=== PATIENT | male | born 1970 | race Two or more races ===

== ENCOUNTER 2020-05-17 13:25 | Inpatient (IN) | payer MEDICAID ==
[~2020-05-17] VITALS: Ht 190.5 cm; Wt 99.8 kg
--- NOTE | 2020-05-17 13:25 | NUR ---
CAME IN FOR C/O WORSENING SOB, COUGH, FATIGUE, TESTED + COVID 05/10/2020, "I WAS EXPOSED TO MY WHOSE POSITIVE COVID". TO ER BED 8, PLACED ON ISOLATION, PROVIDED W SURGICAL MASK, HOOKED TO EXPERIMENTAL PREFLIGHT MECHANIC, BP CUFF AND POX. CHANGED TO HOSP GOWN, WARM BLANKET PROVIDED, PATIENT AAO x 4, TACHYPNEIC AND TACHYCARDIC. AWAITING MD GUEVARA.
--- NOTE | 2020-05-17 13:51 | NUR ---
DR GARCIA AT BEDSIDE FOR EVAL
[2020-05-17] MEDS ORDERED: CEFTRIAXONE 1 G in IV D5W 50 ML IV ONE (15:00)
[2020-05-17] MEDS ORDERED: DEXAMETHASONE SOD PHOSPHATE 4 MG/ML VIAL IV ONE (15:00)
[2020-05-17] MEDS ORDERED: AZITHROMYCIN 500 MG in IV D5W 250 ML IV ONE (15:00)
[2020-05-17] MEDS ORDERED: DEXAMETHASONE SOD PHOSPHATE 4 MG/ML VIAL ONE (15:43)
[2020-05-17] MEDS ORDERED: CEFTRIAXONE 1GM BAG (ER ONLY) 50 ML IV ONE (15:43)
[2020-05-17 15:53] LABS: BASOPHILS % (AUTO) 0.5 % (0.0-2.0); EOSINOPHILS % (AUTO) 0.2 % (0.0-6.0); HEMATOCRIT 42 % (39-51); HEMOGLOBIN 14.1 g/dL (13.5-17.5); LYMPHOCYTES # (AUTO) 1.4 /CMM (0.8-4.8); LYMPHOCYTES % (AUTO) 16.3 % (20.0-44.0); MEAN CORPUSCULAR HGB CONC 33 g/dl (31.0-36.0); MEAN CORPUSCULAR VOLUME 88 fL (80-96); MONOCYTES # (AUTO) 0.5 /CMM (0.1-1.30); NEUTROPHILS # (AUTO) 6.5 /CMM (1.8-8.9); PLATELET COUNT (AUTO) 474 /CMM (150-450); RED BLOOD CELL COUNT(AUTO) 4.84 MIL/uL (4.5-6.0); WHITE BLOOD COUNT (AUTO) 8.5 K/uL (4.3-11.0)
--- NOTE | 2020-05-17 16:40 | NUR ---
LACTIC ACID 2.2
[2020-05-17 16:41] LABS: D-DIMER 1.21 mg/L(FEU (0.17-0.50)
[2020-05-17 16:53] LABS: CALCIUM, SERUM 8.9 mg/dL (8.5-10.1); CARBON DIOXIDE 29 mmol/L (21-32); CHLORIDE 99 mmol/L (98-107); CREATININE 1.2 mg/dL (0.6-1.3); GLUCOSE 349 mg/dL (74-106); POTASSIUM 4.2 mmol/L (3.5-5.1); SODIUM SERUM 135 mmol/L (136-145); UREA NITROGEN, BLOOD 12 mg/dL (7-18)
[2020-05-17] MEDS ORDERED: ZOLPIDEM TARTRATE 5 MG TABLET PO PRN (17:00)
[2020-05-17] MEDS ORDERED: ACETAMINOPHEN 325 MG TABLET PO PRN (17:00)
[2020-05-17] MEDS ORDERED: MAG HYDROX/AL HYDROX/SIMETH 30 ML UDC PO PRN (17:00)
[2020-05-17] MEDS ORDERED: MAGNESIUM HYDROXIDE 30 ML UDC PO PRN (17:00)
[2020-05-17] MEDS ORDERED: HYDROCODONE/APAP 5/325MG TABLET PO PRN (17:00)
[2020-05-17] MEDS ORDERED: ONDANSETRON HCL/PF 4 MG/2 ML VIAL IVP PRN (17:00)
[2020-05-17] MEDS ORDERED: Z GUARD REMEDY 2 OZ OINT TP PRN (17:00)
[2020-05-17 17:05] LABS: ALANINE AMINOTRANSFERASE 34 U/L (12-78); ALKALINE PHOSPHATASE 154 U/L (46-116); ASPARTATE AMINOTRANSFERASE 35 U/L (15-37); B-TYPE NATRIURETIC PEPTIDE 301 PG/ML (0-125); BILIRUBIN,TOTAL 0.5 mg/dL (0.2-1.0); TOTAL PROTEIN, SERUM 7.8 g/dL (6.4-8.2)
[2020-05-17 17:31] LABS: CREATINE KINASE, TOTAL 281 U/L (39-308); FERRITIN 1438 ng/mL (8-388)
[2020-05-17 17:43] LABS: C-REACTIVE PROTEIN 67.3 mg/dL (0.0-0.9)
--- NOTE | 2020-05-17 17:46 | NUR ---
PATIENT IN BED, ASLEEP, EASILY AROUSABLE BY VOICE. HOOKED TO MONITOR. ON 4LPM VIA NC. O2 SAT AT 93%. WILL CONTINUE TO MONITOR
[2020-05-17 18:54] LABS: BILIRUBIN,DIRECT 0.2 mg/dL (0.0-0.2)
--- NOTE | 2020-05-17 19:15 | NUR ---
ENDORSEMENT GIVEN TO GIULIA IBRAHIM FOR GABINO
[2020-05-18 04:10] LABS: BASOPHILS % (AUTO) 0.2 % (0.0-2.0); HEMATOCRIT 40 % (39-51); HEMOGLOBIN 13.1 g/dL (13.5-17.5); LYMPHOCYTES # (AUTO) 0.8 /CMM (0.8-4.8); MEAN CORPUSCULAR HGB CONC 33 g/dl (31.0-36.0); MEAN CORPUSCULAR VOLUME 89 fL (80-96); MONOCYTES # (AUTO) 0.4 /CMM (0.1-1.30); MONOCYTES % (AUTO) 5.7 % (2.0-12.0); NEUTROPHILS # (AUTO) 6.3 /CMM (1.8-8.9); NEUTROPHILS % (AUTO) 83.1 % (43.0-81.0); PLATELET COUNT (AUTO) 465 /CMM (150-450); RED BLOOD CELL COUNT(AUTO) 4.48 MIL/uL (4.5-6.0); WHITE BLOOD COUNT (AUTO) 7.6 K/uL (4.3-11.0)
[2020-05-18 04:25] LABS: CALCIUM, SERUM 8.5 mg/dL (8.5-10.1); MAGNESIUM 2.3 mg/dL (1.8-2.4); PHOSPHORUS 4.1 mg/dL (2.5-4.9); POTASSIUM 4.3 mmol/L (3.5-5.1)
--- NOTE | 2020-05-18 07:35 | NUR ---
REPORT GIVEN TO RAIMUNDO IBRAHIM FOR GABINO.
[2020-05-18] MEDS ORDERED: DEXAMETHASONE SOD PHOSPHATE 10 MG/ML VIAL ONE (09:17)
[2020-05-18] MEDS: DEXAMETHASONE SOD PHOSPHATE 10 MG/ML VIAL IV SCH (09:33)
--- NOTE | 2020-05-18 09:33 | NUR ---
PATIENT A/OX4, BREATHING EVEN AND UNLABORED, NOS OB NOTED. INITIALLY ON 4LPM VIA NC, TITRATED DOWN TO 3LPM VIA NC WITH SPO2 OF 93%, NEEDS ATTENDED. KEPT COMFORTABLE. VITALS STABLE.
[2020-05-18] MEDS ORDERED: ENOXAPARIN SODIUM 40 MG/0.4 ML DISP.SYRIN SQ ONE (11:39)
[2020-05-18] MEDS: ENOXAPARIN SODIUM 40 MG/0.4 ML DISP.SYRIN SQ SCH (11:52)
[2020-05-18] MEDS ORDERED: REMDESIVIR (CHARGED) 200 MG, *LOADING DOSE 1 EA in IV NS 0.9% 210 ML IV ONE (14:00)
--- NOTE | 2020-05-18 20:26 | NUR ---
PATIENT IS AAOX4. NO SOB .BREATHING EVENLY AND UNLABORED ON 4L VIA NASAL CANNULA. PATIENT IS WATCHING TELEVISION. PATIENT STATES THAT HE IS ABLE TO HAVE A BOWEL MOVEMENT WITHOUT ASSISTANCE. WILL CONTINUE TO SUPERVISE PATIENT.
--- NOTE | 2020-05-18 21:10 | NUR ---
PATIENT URINATED, AND HAD A BOWEL MOVEMENT, URINE OF 650ML
--- NOTE | 2020-05-18 22:58 | NUR ---
ARNAUD BARLOW [facility] NOTIFIED OF PATIENT'S BLOOD SUGAR OF 405.
[2020-05-18] MEDS ORDERED: DEXTROSE 50%-WATER 50 ML DISP.SYRIN IV PRN (23:30)
[2020-05-18] MEDS: BLOOD SUGAR DIAGNOSTIC 1 EACH STRIP VI SCH (23:30)
[2020-05-19] MEDS: *INSULIN REGULAR(HUMULIN R)HUM 100 UNIT/ML VIAL SQ PRN (00:19)
[2020-05-19] MEDS ORDERED: INSULIN REGULAR, HUMAN 100 UNIT/ML 10 ML VIAL ONE ×2 (00:28→12:25)
[2020-05-19 03:55] LABS: BASOPHILS % (AUTO) 0.3 % (0.0-2.0); HEMATOCRIT 42 % (39-51); HEMOGLOBIN 14.1 g/dL (13.5-17.5); LYMPHOCYTES # (AUTO) 0.7 /CMM (0.8-4.8); LYMPHOCYTES % (AUTO) 7.6 % (20.0-44.0); MEAN CORPUSCULAR HGB CONC 34 g/dl (31.0-36.0); MEAN CORPUSCULAR VOLUME 86 fL (80-96); MONOCYTES # (AUTO) 0.6 /CMM (0.1-1.30); MONOCYTES % (AUTO) 5.9 % (2.0-12.0); NEUTROPHILS # (AUTO) 8.3 /CMM (1.8-8.9); NEUTROPHILS % (AUTO) 86.2 % (43.0-81.0); PLATELET COUNT (AUTO) 593 /CMM (150-450); RED BLOOD CELL COUNT(AUTO) 4.84 MIL/uL (4.5-6.0); WHITE BLOOD COUNT (AUTO) 9.6 K/uL (4.3-11.0)
[2020-05-19 04:10] LABS: CALCIUM, SERUM 8.9 mg/dL (8.5-10.1); POTASSIUM 4.2 mmol/L (3.5-5.1)
[2020-05-19] MEDS: BLOOD SUGAR DIAGNOSTIC 1 EACH STRIP VI SCH ×4 (07:36→23:43)
[2020-05-19] MEDS: INSULIN REGULAR, HUMAN 100 UNIT/ML 3 ML VIAL SQ PRN ×3 (07:39→18:31)
--- NOTE | 2020-05-19 07:49 | NUR ---
REPORT GIVEN TO ZIGGY IBRAHIM FOR GABINO.
[2020-05-19] MEDS ORDERED: DEXAMETHASONE SOD PHOSPHATE 4 MG/ML VIAL ONE (09:04)
[2020-05-19] MEDS ORDERED: ENOXAPARIN SODIUM 40 MG/0.4 ML DISP.SYRIN SQ ONE (09:04)
[2020-05-19] MEDS: DEXAMETHASONE SOD PHOSPHATE 10 MG/ML VIAL IV SCH (09:06)
[2020-05-19] MEDS: ENOXAPARIN SODIUM 40 MG/0.4 ML DISP.SYRIN SQ SCH (09:07)
--- NOTE | 2020-05-19 09:24 | NUR ---
pt had breakfast meds given
[2020-05-19 13:24] LABS: ALBUMIN 1.9 g/dL (3.4-5.0); BILIRUBIN,DIRECT 0.1 mg/dL (0.0-0.2); BILIRUBIN,TOTAL 0.4 mg/dL (0.2-1.0); TOTAL PROTEIN, SERUM 7.3 g/dL (6.4-8.2)
--- NOTE | 2020-05-19 13:30 | NUR ---
PLASMA INFUSION STARTED . VSS LUNCH GIVEN
--- NOTE | 2020-05-19 14:30 | NUR ---
PT INFUSION COMPETED NO REACTION TOLERATED WELL
[2020-05-19] MEDS: REMDESIVIR (CHARGED) 100 MG in IV NS 0.9% 230 ML IV SCH (15:00)
--- NOTE | 2020-05-19 16:14 | NUR ---
diaper changed cleaned pt fell back asleep cont to monitor
--- NOTE | 2020-05-19 19:55 | NUR ---
pt in bed 11ox4. not in resp distress. on o2 via nc @ 2lpm
--- NOTE | 2020-05-19 21:47 | NUR ---
REC'D COVID POSITIVE RESULTS. AWARE
--- NOTE | 2020-05-20 03:41 | NUR ---
PT IN BED SLEEPING. NAD NOTED. BREATHING EVEN AND UNLABORED. ON NC @ 2LPM
[2020-05-20 06:09] LABS: BASOPHILS % (AUTO) 0.3 % (0.0-2.0); HEMATOCRIT 41 % (39-51); HEMOGLOBIN 13.8 g/dL (13.5-17.5); LYMPHOCYTES # (AUTO) 0.9 /CMM (0.8-4.8); LYMPHOCYTES % (AUTO) 8.5 % (20.0-44.0); MEAN CORPUSCULAR HGB CONC 34 g/dl (31.0-36.0); MEAN CORPUSCULAR VOLUME 86 fL (80-96); MONOCYTES # (AUTO) 0.6 /CMM (0.1-1.30); MONOCYTES % (AUTO) 5.7 % (2.0-12.0); NEUTROPHILS # (AUTO) 9.6 /CMM (1.8-8.9); NEUTROPHILS % (AUTO) 85.5 % (43.0-81.0); PLATELET COUNT (AUTO) 628 /CMM (150-450); WHITE BLOOD COUNT (AUTO) 11.2 K/uL (4.3-11.0)
[2020-05-20 06:11] LABS: CALCIUM, SERUM 8.9 mg/dL (8.5-10.1); CREATININE 0.8 mg/dL (0.6-1.3); POTASSIUM 4.2 mmol/L (3.5-5.1)
--- NOTE | 2020-05-20 07:31 | NUR ---
REPORT GIVEN TO MANDIE IBRAHIM FOR GABINO.
[2020-05-20] MEDS: BLOOD SUGAR DIAGNOSTIC 1 EACH STRIP VI SCH ×4 (07:42→22:05)
[2020-05-20] MEDS: *INSULIN REGULAR(HUMULIN R)HUM 100 UNIT/ML VIAL SQ PRN ×2 (07:45→22:17)
[2020-05-20] MEDS: INSULIN REGULAR, HUMAN 100 UNIT/ML 3 ML VIAL SQ PRN ×3 (07:46→17:51)
--- NOTE | 2020-05-20 07:59 | NUR ---
PT STATES HE FEELS MUCH BETTER, MUCH STRONGER. DESATS TO 88% ON ROOM AIR BUT NO RESPIRATORY DISTRESS. COMFORTABLE ON 4L VIA NC. SITTING ON EDGE OF BED EATING BREAKFAST.
[2020-05-20 08:24] LABS: BAND % (MANUAL) 5 % (0.0-5.0); LYMPHOCYTES % (MANUAL) 7 % (16-48); MONOCYTES % (MANUAL) 5 % (0-11.0); NEUTROPHILS % (MANUAL) 83 (42-76)
[2020-05-20] MEDS ORDERED: DEXAMETHASONE SOD PHOSPHATE 10 MG/ML VIAL ONE (09:24)
[2020-05-20] MEDS ORDERED: ENOXAPARIN SODIUM 40 MG/0.4 ML DISP.SYRIN SQ ONE (09:25)
[2020-05-20] MEDS: DEXAMETHASONE SOD PHOSPHATE 10 MG/ML VIAL IV SCH (09:25)
[2020-05-20] MEDS: ENOXAPARIN SODIUM 40 MG/0.4 ML DISP.SYRIN SQ SCH (09:26)
--- NOTE | 2020-05-20 14:09 | NUR ---
PT ATE 100% OF LUNCH. EDUCATED ON MANAGEMENT OF DIABETES FOR AFTER DISCHARGE, DIETARY MODIFICATIONS, INCREASED EXERCISE, SEE A FACILITIES SPECIALIST. NAD NOTED.
[2020-05-20] MEDS: REMDESIVIR (CHARGED) 100 MG in IV NS 0.9% 230 ML IV SCH (14:51)
[2020-05-20] MEDS ORDERED: INSULIN REGULAR, HUMAN 100 UNIT/ML 10 ML VIAL ONE (22:06)
--- NOTE | 2020-05-20 22:17 | NUR ---
patient on 4l of nasal cannula, noted to be 100%, titrated oxygen to 3Liters, will continue to monitor patient closely.
--- NOTE | 2020-05-21 00:11 | NUR ---
PATIENT IS SLEEPING. EASILY AROUSABLE. BREATHING EVENLY AND UNLABORED ON 97% ON 3L OF NASAL CANNULA. CONNECTED TO THE MONITOR. CALL LIGHT IS WITHIN REACH. BED AT THE LOWEST POSITION URINAL AT BEDSIDE.
[2020-05-21] MEDS: LISINOPRIL (5MG) 5 MG TABLET PO SCH ×2 (00:30→09:02)
[2020-05-21] MEDS ORDERED: hydrALAZINE HCL 10 MG TABLET PO PRN (00:30)
[2020-05-21 05:43] LABS: ABG BASE EXCESS -2.9 mmol/L; ABG OXYGEN SATURATION 91.4 % (92.0-98.5); ABG PCO2 30.7 mmHg (35.0-45.0); ABG PH 7.435 (7.350-7.450); AaDO2 130.2 mmHg; COHb 0.2 % (0.5-1.5); MetHb 0.3 % (0.0-1.5); O2Hb 90.9 % (94.0-97.0); SITE, ABG Left Radial; VENT MODE, BG 3LNC
[2020-05-21 06:23] LABS: BASOPHILS % (AUTO) 0.3 % (0.0-2.0); EOSINOPHILS % (AUTO) 0.1 % (0.0-6.0); HEMATOCRIT 42 % (39-51); HEMOGLOBIN 14.3 g/dL (13.5-17.5); LYMPHOCYTES # (AUTO) 1.7 /CMM (0.8-4.8); LYMPHOCYTES % (AUTO) 14.9 % (20.0-44.0); MEAN CORPUSCULAR HGB CONC 34 g/dl (31.0-36.0); MEAN CORPUSCULAR VOLUME 85 fL (80-96); MONOCYTES # (AUTO) 0.7 /CMM (0.1-1.30); MONOCYTES % (AUTO) 5.9 % (2.0-12.0); NEUTROPHILS # (AUTO) 8.8 /CMM (1.8-8.9); NEUTROPHILS % (AUTO) 78.8 % (43.0-81.0); PLATELET COUNT (AUTO) 697 /CMM (150-450); RED BLOOD CELL COUNT(AUTO) 4.88 MIL/uL (4.5-6.0); WHITE BLOOD COUNT (AUTO) 11.2 K/uL (4.3-11.0)
[2020-05-21 06:27] LABS: BILIRUBIN,TOTAL 0.3 mg/dL (0.2-1.0); CALCIUM, SERUM 8.7 mg/dL (8.5-10.1); CREATININE 0.8 mg/dL (0.6-1.3); TOTAL PROTEIN, SERUM 6.7 g/dL (6.4-8.2)
--- NOTE | 2020-05-21 07:33 | NUR ---
REPORT GIVEN TO ZIGGY IBRAHIM FOR GABINO.
[2020-05-21] MEDS ORDERED: DEXAMETHASONE SOD PHOSPHATE 4 MG/ML VIAL ONE (08:33)
[2020-05-21] MEDS ORDERED: ENOXAPARIN SODIUM 40 MG/0.4 ML DISP.SYRIN SQ ONE ×3 (08:36→19:56)
--- NOTE | 2020-05-21 08:40 | NUR ---
PT SENT TO CT
[2020-05-21] MEDS: BLOOD SUGAR DIAGNOSTIC 1 EACH STRIP VI SCH ×4 (08:50→21:43)
[2020-05-21] MEDS: DEXAMETHASONE SOD PHOSPHATE 10 MG/ML VIAL IV SCH (09:01)
[2020-05-21] MEDS: ENOXAPARIN SODIUM 40 MG/0.4 ML DISP.SYRIN SQ SCH ×3 (09:04→19:56)
[2020-05-21] MEDS: *INSULIN REGULAR(HUMULIN R)HUM 100 UNIT/ML VIAL SQ PRN ×2 (12:23→23:07)
[2020-05-21] MEDS: INSULIN REGULAR, HUMAN 100 UNIT/ML 3 ML VIAL SQ PRN ×2 (12:25→17:36)
--- NOTE | 2020-05-21 13:18 | NUR ---
PT EATTING LUNCH STATAED FEELING BETTER
[2020-05-21] MEDS: REMDESIVIR (CHARGED) 100 MG in IV NS 0.9% 230 ML IV SCH (14:39)
--- NOTE | 2020-05-21 15:28 | NUR ---
IV RESTARTED RT AC 20G
--- NOTE | 2020-05-21 20:06 | NUR ---
ASSUMED CARE. PT AAOX4, NO ACUTE DISTRESS NOTED, RESP EVEN AND UNLABORED. PT REMAINS ON O2@2L/NC, O2 SAT 95%. NO PAIN OR DISCOMFORT NOTED AT THIS TIME. PT REMAINS ON CARDIAC MONITORING, CONTINUOUS POX. CALL LIGHT WITHIN REACH. WILL CONTINUE TO MONITOR PT CLOSELY.
--- NOTE | 2020-05-21 20:56 | NUR ---
PT CALLED WANTS TO LEAVE AMA. ALL RISK EXPLAINED UP TO AND INCLUDING . PLACE PT ON RA TO EVALUATE O2 SAT ON RA. WILL CONTINUE TO MONITOR CLOSELY. CALL LIGHT WITHIN REACH. PT VERBALIZE UNDERSTAND OF ALL RISKS EXPLAINED.
--- NOTE | 2020-05-21 21:03 | NUR ---
NOTED PT O2 SAT DECREASED TO 87% ON RA. PLACE PT BACK ON O2@2L/NC. PT HAS NOW CHANGED HIS MIND ABOUT LEAVING AMA.
--- NOTE | 2020-05-21 21:05 | NUR ---
O2 SAT 95% ON 2L/NC. PT VERBALIZE FEELING BETTER AT THIS TIME. WILL CONTINUE TO MONITOR PT. CLOSELY.
--- NOTE | 2020-05-22 00:25 | NUR ---
PT ASLEEP, NO ACUTE DISTRESS NOTED, RESP EVEN AND UNLABORED. NO PAIN OR DISCOMFORT NOTED AT THIS TIME. CALL LIGHT WITHIN REACH. WILL CONTINUE TO MONITOR PT.
[2020-05-22 05:43] LABS: BASOPHILS # (AUTO) 0.1 /CMM (0.0-0.2); BASOPHILS % (AUTO) 0.5 % (0.0-2.0); EOSINOPHILS % (AUTO) 0.3 % (0.0-6.0); HEMATOCRIT 42 % (39-51); HEMOGLOBIN 14.3 g/dL (13.5-17.5); LYMPHOCYTES # (AUTO) 2.3 /CMM (0.8-4.8); LYMPHOCYTES % (AUTO) 20.8 % (20.0-44.0); MEAN CORPUSCULAR HGB CONC 34 g/dl (31.0-36.0); MEAN CORPUSCULAR VOLUME 86 fL (80-96); MONOCYTES # (AUTO) 0.5 /CMM (0.1-1.30); NEUTROPHILS # (AUTO) 8.1 /CMM (1.8-8.9); NEUTROPHILS % (AUTO) 73.4 % (43.0-81.0); PLATELET COUNT (AUTO) 695 /CMM (150-450); RED BLOOD CELL COUNT(AUTO) 4.88 MIL/uL (4.5-6.0)
[2020-05-22 05:56] LABS: CALCIUM, SERUM 8.4 mg/dL (8.5-10.1); CREATININE 0.8 mg/dL (0.6-1.3); POTASSIUM 3.6 mmol/L (3.5-5.1)
--- NOTE | 2020-05-22 08:02 | NUR ---
PATIENT SERVED BREAKFAST. TOLERATING PO WELL
[2020-05-22] MEDS: BLOOD SUGAR DIAGNOSTIC 1 EACH STRIP VI SCH ×4 (09:27→20:36)
[2020-05-22] MEDS: ENOXAPARIN SODIUM 40 MG/0.4 ML DISP.SYRIN SQ SCH ×2 (09:30→17:41)
[2020-05-22] MEDS: LISINOPRIL (5MG) 5 MG TABLET PO SCH (09:32)
[2020-05-22] MEDS: DEXAMETHASONE SOD PHOSPHATE 10 MG/ML VIAL IV SCH (09:32)
--- NOTE | 2020-05-22 10:12 | NUR ---
RECEIVED ORDER FROM DR HORVATH TO REMOVE OXYGEN AND SEE HOW PATIENT'S O2 SAT WILL BE. CARRIED OUT. WILL FOLLOW UP Elsie HORVATH OF RESULTS.
[2020-05-22] MEDS: INSULIN REGULAR, HUMAN 100 UNIT/ML 3 ML VIAL SQ PRN ×2 (11:45→17:44)
--- NOTE | 2020-05-22 12:22 | NUR ---
PATIENT SERVED LUNCH. TOLERATING PO WELL . ATE 80% OF FOOD.
--- NOTE | 2020-05-22 13:12 | NUR ---
MADE DR HORVATH AWARE OF PATIENT'S O2 SAT AT . AWAITING REPLY
--- NOTE | 2020-05-22 13:16 | NUR ---
RECEIVED REPLY FROM DR APARICIO ABOUT O2 SAT W/O O2 AND AT BED REST. SAYS IF PATIENT STAYS 90% O2 SAT AND ABOVE AND TUBE DRAWER CLEARS TO THEN MAYBE PATIENT IS OK TO BE DISCHARGED. USUALLY NEEDS TO WAIT FOR 24 HOURS OFF OXYGEN BEFORE SENDING HOME. MADE PATIENT AWARE.
[2020-05-22 13:20] LABS: ALBUMIN 2.1 g/dL (3.4-5.0); BILIRUBIN,DIRECT 0.1 mg/dL (0.0-0.2); BILIRUBIN,TOTAL 0.4 mg/dL (0.2-1.0); TOTAL PROTEIN, SERUM 6.7 g/dL (6.4-8.2)
[2020-05-22] MEDS: REMDESIVIR (CHARGED) 100 MG in IV NS 0.9% 230 ML IV SCH (14:40)
--- NOTE | 2020-05-22 17:57 | NUR ---
PATIENT TOLERATED PO DURING DINNER, ATE 90%.
--- NOTE | 2020-05-22 19:21 | NUR ---
REPORT GIVEN TO GIULIA IBRAHIM FOR GABINO
--- NOTE | 2020-05-22 20:09 | NUR ---
PT WANT TO SIGN OUT AMA AND REFUSES TO WAIT FOR SUPPLEMENTAL O2 TO BE ARRANGED BY [employer]. PT WANTS TO AMBULATE TO THE RESTROOM AND BACK TO CHECK HIS O2 SAT AND HE WILL DECIDE IF HE WANTS TO SIGN OUT AMA. PT AAOX4 NO ACUTE DISTRESS NOTED, RESP EVEN AND UNLABORED.
--- NOTE | 2020-05-22 20:13 | NUR ---
PRETRIAL OF AMBULATION O2 SAT 98 ON RA. POST TRIAL OF AMBULATION 93-94%. PT STILL WANT TO SIGN OUT AMA. ALL RISKS EXPLAINED TO PT UP TO AND INCLUDING . PT VERBALIZE UNDERSTANDING.
--- NOTE | 2020-05-22 20:15 | NUR ---
Patient does not wish to proceed with medical care recommended by (ARNAUD BARLOW DNP). Patient given information related to possible complications, up to and including , which could occur as a result of leaving the hospital at this time. Patient verbalizes understanding of risks involved due to leaving against medical advice. Patient has signed AMA form.
[2020-05-22] MEDS: *INSULIN REGULAR(HUMULIN R)HUM 100 UNIT/ML VIAL SQ PRN (20:34)
--- NOTE | 2020-05-22 20:43 | NUR ---
PT REQUESTING TO HAVE BS CHECKED BEFORE LEAVING. ACCUCHECK 410. PT GIVEN REGULAR INSULIN REQUESTED. PT LEFT AMA. PT AAOX4 NO ACUTE DISTRESS NOTED, RESP EVEN AND UNLABORED. PT S/O HERE TO TAKE PT HOME. SL REMOVED, PRESSURE APPLIED, 4X4 APPLIED, NO ACUTE BLEEDING NOTED.
[2020-05-22 20:52] VITALS: BP 139/72
== END 2020-05-22 20:52 | disposition left against medical advice (07) | DRG 137 ==
LOC: EDBD 13:30 → ER 13:30 → TRANSITION 18:22 → EDBD 18:22
PROVIDERS: ADMIT Family Medicine; ATTEND Family Medicine
PROC: XW13325 Transfusion of Convalescent Plasma (Nonautologous) into Peripheral Vein, Percutaneous Approach, New Technology Group 5 (ICD-10-PCS; 2020-05-18)
PROC: XW033E5 Introduction of Remdesivir Anti-infective into Peripheral Vein, Percutaneous Approach, New Technology Group 5 (ICD-10-PCS; principal; 2020-05-19)
DX: U07.1 COVID-19 (principal); J12.89 Other viral pneumonia; J96.01 Acute respiratory failure with hypoxia; E43 Unspecified severe protein-calorie malnutrition; J90 Pleural effusion, not elsewhere classified
CPT/HCPCS: 36415; 36600; 71045-TC; 80048-TC; 80053-TC; 80061-TC; 80076-TC; 82248-TC; 82550-TC; 82728-TC; 82962-TC; 83605-TC; 83615-TC; 83735-TC; 83880; 84100-TC; 84484-TC; 85025-TC; 85378-TC; 85610-TC; 85730-TC; 86140-TC; 86850-TC; 87040-TC; 87081-TC; 93307-TC; A4216; G0378; J0456; J0696; J1100; J1650; J1815; J7030; J7050; J7060; P9017-BL; U0003

== ENCOUNTER 2020-05-23 12:18 | Emergency (ER) | payer MEDICAID ==
[~2020-05-23] VITALS: Ht 182.9 cm; Wt 124.7 kg
[2020-05-23 13:06] LABS: BASOPHILS # (AUTO) 0.1 /CMM (0.0-0.2); BASOPHILS % (AUTO) 0.5 % (0.0-2.0); EOSINOPHILS % (AUTO) 0.4 % (0.0-6.0); HEMATOCRIT 42 % (39-51); HEMOGLOBIN 14.2 g/dL (13.5-17.5); LYMPHOCYTES # (AUTO) 2.2 /CMM (0.8-4.8); LYMPHOCYTES % (AUTO) 16.5 % (20.0-44.0); MEAN CORPUSCULAR HGB CONC 34 g/dl (31.0-36.0); MEAN CORPUSCULAR VOLUME 87 fL (80-96); MONOCYTES # (AUTO) 0.6 /CMM (0.1-1.30); MONOCYTES % (AUTO) 4.9 % (2.0-12.0); NEUTROPHILS # (AUTO) 10.2 /CMM (1.8-8.9); NEUTROPHILS % (AUTO) 77.7 % (43.0-81.0); PLATELET COUNT (AUTO) 761 /CMM (150-450); RED BLOOD CELL COUNT(AUTO) 4.86 MIL/uL (4.5-6.0); WHITE BLOOD COUNT (AUTO) 13.2 K/uL (4.3-11.0)
--- NOTE | 2020-05-23 13:11 | NUR ---
bibs from home to er bed 22. aaox4. not in resp distress, breathing even and unlabored. ambulatory. came in for concern of his elevated bs with has found when he was here being admitted for covid. pt does not have any discharge medication to manage his elevated bs. md was at the bedside for eval. orders received noted and carried out.
[2020-05-23 13:24] LABS: ALANINE AMINOTRANSFERASE 45 U/L (12-78); ALBUMIN 2.2 g/dL (3.4-5.0); ALKALINE PHOSPHATASE 94 U/L (46-116); ASPARTATE AMINOTRANSFERASE 24 U/L (15-37); BILIRUBIN,TOTAL 0.5 mg/dL (0.2-1.0); CALCIUM, SERUM 8.5 mg/dL (8.5-10.1); CARBON DIOXIDE 27 mmol/L (21-32); CHLORIDE 101 mmol/L (98-107); CREATININE 1.2 mg/dL (0.6-1.3); POTASSIUM 3.6 mmol/L (3.5-5.1); SODIUM SERUM 135 mmol/L (136-145); UREA NITROGEN, BLOOD 24 mg/dL (7-18)
[2020-05-23 13:25] LABS: TOTAL PROTEIN, SERUM 6.8 g/dL (6.4-8.2)
[2020-05-23 13:27] LABS: GLUCOSE 477 mg/dL (74-106)
[2020-05-23 13:28] LABS: B-TYPE NATRIURETIC PEPTIDE 214 PG/ML (0-125)
[2020-05-23 14:11] LABS: BILIRUBIN,URINE Negative (NEGATIVE); COLOR,URINE YELLOW (YELLOW); LEUKOCYTE ESTERASE ,URINE Negative (NEGATIVE); NITRITE, URINE Negative (NEGATIVE); PROTEIN,URINE 30 mg/dl (NEGATIVE); UGLUCOSE >=1000 mg/dL (NEGATIVE); UROBILINOGEN,URINE 0.2 EU/dL (0.2)
[2020-05-23 14:12] LABS: BACTERIA,URINE None seen /HPF (None Seen); SQUAMOUS EPITHELIAL CELL,UR None Seen /HPF (None Seen); WBC,URINE 0-2 /HPF (0-3)
--- NOTE | 2020-05-23 14:44 | NUR ---
Patient discharged to home in stable condition. Written and verbal after care instructions given. Patient verbalizes understanding of instruction. Pt ambulatory with a steady gait
[2020-05-23 14:54] VITALS: BP 135/80
[2020-05-23 14:56] LABS: CREATINE KINASE, TOTAL 124 U/L (39-308)
[2020-05-23 15:25] LABS: C-REACTIVE PROTEIN 5.4 mg/dL (0.0-0.9)
[2020-05-23 16:12] LABS: FERRITIN 1413 ng/mL (8-388)
[2020-05-23 16:38] LABS: D-DIMER 1.44 mg/L(FEU (0.17-0.50)
== END 2020-05-23 14:55 | disposition home or self-care (01) ==
LOC: ER 12:21
DX: U07.1 COVID-19 (principal); R73.9 Hyperglycemia, unspecified; I70.0 Atherosclerosis of aorta; R81 Glycosuria; J12.82 Pneumonia due to coronavirus disease 2019
CPT/HCPCS: 36415; 71045; 80053; 81001; 82550; 82728; 82962; 83605; 83615; 83880; 84145; 84484; 85025; 85378; 85385; 85730; 86140; 87426; 99284; C9803

== ENCOUNTER 2020-06-02 15:32 | Emergency (ER) | payer MEDICAID ==
[~2020-06-02] VITALS: Ht 177.8 cm; Wt 113.4 kg
--- NOTE | 2020-06-02 15:45 | NUR ---
bib self c/o headache/migraine states that he feels itmostly on the r eye. vs checked. awaiting md valencia
--- NOTE | 2020-06-02 16:09 | NUR ---
seen by agus boggs
[2020-06-02 16:53] LABS: BASOPHILS # (AUTO) 0.1 /CMM (0.0-0.2); BASOPHILS % (AUTO) 1.6 % (0.0-2.0); EOSINOPHILS % (AUTO) 0.4 % (0.0-6.0); HEMATOCRIT 41 % (39-51); HEMOGLOBIN 14.3 g/dL (13.5-17.5); LYMPHOCYTES % (AUTO) 24.8 % (20.0-44.0); MEAN CORPUSCULAR HGB CONC 35 g/dl (31.0-36.0); MEAN CORPUSCULAR VOLUME 87 fL (80-96); MONOCYTES # (AUTO) 0.5 /CMM (0.1-1.30); MONOCYTES % (AUTO) 6.4 % (2.0-12.0); NEUTROPHILS # (AUTO) 5.4 /CMM (1.8-8.9); NEUTROPHILS % (AUTO) 66.8 % (43.0-81.0); PLATELET COUNT (AUTO) 317 /CMM (150-450); RED BLOOD CELL COUNT(AUTO) 4.67 MIL/uL (4.5-6.0); WHITE BLOOD COUNT (AUTO) 8.1 K/uL (4.3-11.0)
[2020-06-02 17:06] LABS: ALBUMIN 2.8 g/dL (3.4-5.0); BILIRUBIN,TOTAL 0.4 mg/dL (0.2-1.0); CALCIUM, SERUM 8.7 mg/dL (8.5-10.1); POTASSIUM 4.1 mmol/L (3.5-5.1); TOTAL PROTEIN, SERUM 6.8 g/dL (6.4-8.2)
[2020-06-02 18:04] LABS: BILIRUBIN,DIRECT 0.1 mg/dL (0.0-0.2)
--- NOTE | 2020-06-02 18:15 | NUR ---
CALLED DR. ARMENTA LEFT MSG. [phone]
--- NOTE | 2020-06-02 18:26 | NUR ---
CALLED STEPH BOOTH TO CALL US BACK.
[2020-06-02 18:27] LABS: BAND % (MANUAL) 6 % (0.0-5.0); EOSINOPHILS % (MANUAL) 2 % (0-4); LYMPHOCYTES % (MANUAL) 27 % (16-48); MONOCYTES % (MANUAL) 5 % (0-11.0); NEUTROPHILS % (MANUAL) 60 (42-76)
[2020-06-02] MEDS ORDERED: CT SWABBABLE VALVE TRANS SET 1 EA INFUS.SET MC ONE (18:53)
[2020-06-02] MEDS ORDERED: IOHEXOL-350 100 ML VIAL IV ONE (18:53)
[2020-06-02] MEDS ORDERED: IV NS 0.9% 250 ML IV ONE (18:53)
--- NOTE | 2020-06-02 19:15 | NUR ---
REC'D REPORT FROM PATRICE HERNANDEZ FOR GABINO
--- NOTE | 2020-06-02 19:17 | NUR ---
out for cta of brain
--- NOTE | 2020-06-02 19:28 | NUR ---
PT RETURNED FROM CT
--- NOTE | 2020-06-02 20:37 | NUR ---
Patient discharged to home in stable condition. Written and verbal after care instructions given. Patient verbalizes understanding of instruction.Pt ambulatory with a steady gait. IV removed. Catheter intact and site benign. Pressure and 4x4 applied to site. No bleeding noted.
[2020-06-02 20:38] VITALS: BP 165/96
== END 2020-06-02 20:39 | disposition home or self-care (01) ==
LOC: ER 15:44
DX: R73.9 Hyperglycemia, unspecified (principal); R51.9 Headache, unspecified; H51.8 Other specified disorders of binocular movement
CPT/HCPCS: 36415; 70450; 70496; 70498; 80048; 80076; 85007; 85025; 85730; 99285; J7050; Q9967

== ENCOUNTER 2022-09-30 10:21 | Inpatient (IN) | payer MEDICAID ==
[~2022-09-30] VITALS: Ht 182.9 cm; Wt 137.0 kg
--- NOTE | 2022-09-30 10:31 | NUR ---
SHORT OF BREATH X 1 WEEK,SINUS CONGESTION AND COUGH, SATTING AT 95% ON ROOM AIR. AWAITING MD ORDERS.
[2022-09-30 11:43] LABS: CALCIUM, SERUM 8.9 mg/dL (8.5-10.1); CARBON DIOXIDE 26 mmol/L (21-32); CHLORIDE 103 mmol/L (98-107); CREATININE 0.8 mg/dL (0.6-1.3); GLUCOSE 281 mg/dL (74-106); POTASSIUM 4.1 mmol/L (3.5-5.1); SODIUM SERUM 138 mmol/L (136-145); UREA NITROGEN, BLOOD 18 mg/dL (7-18)
[2022-09-30 11:49] LABS: ALANINE AMINOTRANSFERASE 59 U/L (12-78); ALBUMIN 3.1 g/dL (3.4-5.0); ALKALINE PHOSPHATASE 119 U/L (46-116); ASPARTATE AMINOTRANSFERASE 20 U/L (15-37); BILIRUBIN,DIRECT 0.1 mg/dL (0.0-0.2); BILIRUBIN,TOTAL 0.7 mg/dL (0.2-1.0); TOTAL PROTEIN, SERUM 6.6 g/dL (6.4-8.2)
[2022-09-30 11:51] LABS: BASOPHILS % (AUTO) 0.4 % (0.0-2.0); EOSINOPHILS % (AUTO) 0.6 % (0.0-6.0); HEMATOCRIT 42 % (39-51); HEMOGLOBIN 14.2 g/dL (13.5-17.5); LYMPHOCYTES % (AUTO) 27.4 % (20.0-44.0); MEAN CORPUSCULAR HGB CONC 34 g/dl (31.0-36.0); MEAN CORPUSCULAR VOLUME 86 fL (80-96); MONOCYTES # (AUTO) 0.6 K/uL (0.1-1.30); MONOCYTES % (AUTO) 7.8 % (2.0-12.0); NEUTROPHILS # (AUTO) 4.8 K/uL (1.8-8.9); NEUTROPHILS % (AUTO) 63.8 % (43.0-81.0); PLATELET COUNT (AUTO) 264 K/uL (150-450); RED BLOOD CELL COUNT(AUTO) 4.92 MIL/uL (4.5-6.0); WHITE BLOOD COUNT (AUTO) 7.5 K/uL (4.3-11.0)
[2022-09-30] MEDS ORDERED: ACETAMINOPHEN 325 MG TABLET PO PRN (16:00)
[2022-09-30] MEDS ORDERED: MORPHINE SULFATE INJ 2 MG/ML DISP.SYRIN IV PRN (16:00)
[2022-09-30] MEDS ORDERED: AZITHROMYCIN 250 MG TABLET PO ONE (16:00)
[2022-09-30] MEDS ORDERED: HYDROCODONE/APAP 5/325MG TABLET PO PRN (16:00)
[2022-09-30] MEDS ORDERED: MAG HYDROX/AL HYDROX/SIMETH 30 ML UDC PO PRN (16:00)
[2022-09-30] MEDS ORDERED: TEMAZEPAM 15 MG CAPSULE PO PRN (16:00)
[2022-09-30] MEDS ORDERED: MAGNESIUM HYDROXIDE 30 ML UDC PO PRN (16:00)
[2022-09-30] MEDS ORDERED: Z GUARD REMEDY 4 OZ OINT TP PRN (16:00)
[2022-09-30] MEDS ORDERED: ONDANSETRON HCL/PF 4 MG/2 ML VIAL IVP PRN (16:00)
[2022-09-30] MEDS ORDERED: DEXTROSE 50%-WATER 50 ML DISP.SYRIN IV PRN (16:30)
--- NOTE | 2022-09-30 18:03 | NUR ---
REPORT GIVEN TO ALBERTO FOR GABINO
--- NOTE | 2022-09-30 18:58 | NUR ---
PT TRANSFERRED OT TELE FLOOR WITH ACLS PROTOCOLS IN PLACE
[2022-09-30] MEDS: BLOOD SUGAR DIAGNOSTIC 1 EACH STRIP IN SCH ×2 (19:20→21:27)
--- NOTE | 2022-09-30 19:20 | NUR ---
PRODUCTION SCHEDULER ADMITTING NOTE RECEIVED PATIENT FROM AM NURSE; PATIENT IN BED WITH AT BEDSIDE, A/O X 4, ABLE TO MAKE NEEDS KNOWN; STABLE ON ROOM AIR, BREATHING EVENLY AND NO S/S OF DISTRESS NOTED; WITH IV ACCESS AT RAC G#20 SALINE LOCK; SKIN ASSESSMENT WAS DONE AND NOTED DRY SCAB AT [place]IB[place] AND OLD SURGICAL SCAR, PHOTOGRAPHED AND INSERTED INTO CHART; VITAL SIGNS TAKEN AND RECORDED; ORIENTED TO STAFF AND ROOM; ENCOURAGED VERBALIZATION OF NEEDS; SAFETY MEASURES IMPLEMENTED, BED LOCKED IN LOWEST POSITION, SIDE RAILS UP X 2, CALL LIGHT AND TABLE WITHIN REACH; WILL CONTINUE TO MONITOR
--- NOTE | 2022-09-30 19:40 | NUR ---
SAMPLE FINISHER NOTE COMPLAINED OF CONGESTED NOSE AND HEADACHE, ADMINISTERED TYLENOL PRN ORDERED; PATIENT TOLERATED WELL; WAS SUPPOSE TO GIVE AZITHROMYCIN DUE AT 1600H BUT UNABLE TO PULL OUT FROM PYXIS, CHARGE NURSE MADE AWARE.
[2022-09-30 20:00] VITALS: BP 176/68
[2022-09-30] MEDS: INSULIN REGULAR, HUMAN 100 UNIT/ML 3 ML VIAL SQ PRN (21:29)
[2022-09-30] MEDS ORDERED: AZITHROMYCIN 250 MG TABLET ONE (22:38)
--- NOTE | 2022-09-30 22:45 | NUR ---
HATCHERY LABORER NOTE GAVE AZITHROMYCIN 500MG AT 2240H; UNABLE TO PULL OUT AZITHROMYCIN TABLET INITIALLY HENCE LATE ADMINISTRATION. CHARGE NURSE AWARE. PATIENT TOLERATED WELL; WILL CONTINUE TO MONITOR
[2022-09-30] MEDS ORDERED: METF-442 PO (23:52)
[2022-09-30] MEDS ORDERED: LISI10TA29 PO (23:52)
[2022-09-30] MEDS ORDERED: ATOR40TA PO (23:52)
[2022-09-30] MEDS ORDERED: OMEG-167 PO (23:52)
[2022-09-30] MEDS ORDERED: GABA300C PO (23:52)
[2022-09-30] MEDS ORDERED: GLIP10TA11 PO (23:52)
[2022-09-30] MEDS ORDERED: ASPI-1169 PO (23:52)
[2022-09-30] MEDS ORDERED: PIOG15TA8 PO (23:52)
[2022-09-30] MEDS ORDERED: LORA10TA7 PO (23:52)
[2022-10-01] VITALS: BP 156/100
[2022-10-01 04:00] VITALS: BP 156/94
[2022-10-01 06:25] LABS: BASOPHILS % (AUTO) 0.4 % (0.0-2.0); EOSINOPHILS % (AUTO) 0.7 % (0.0-6.0); HEMATOCRIT 43 % (39-51); HEMOGLOBIN 14.5 g/dL (13.5-17.5); LYMPHOCYTES # (AUTO) 2.1 K/uL (0.8-4.8); LYMPHOCYTES % (AUTO) 26.6 % (20.0-44.0); MEAN CORPUSCULAR HGB CONC 34 g/dl (31.0-36.0); MEAN CORPUSCULAR VOLUME 86 fL (80-96); MONOCYTES # (AUTO) 0.7 K/uL (0.1-1.30); MONOCYTES % (AUTO) 8.3 % (2.0-12.0); PLATELET COUNT (AUTO) 279 K/uL (150-450); RED BLOOD CELL COUNT(AUTO) 5.03 MIL/uL (4.5-6.0); WHITE BLOOD COUNT (AUTO) 7.8 K/uL (4.3-11.0)
[2022-10-01] MEDS: BLOOD SUGAR DIAGNOSTIC 1 EACH STRIP IN SCH ×4 (06:40→21:52)
[2022-10-01] MEDS: INSULIN REGULAR, HUMAN 100 UNIT/ML 3 ML VIAL SQ PRN ×4 (06:41→21:56)
[2022-10-01 06:43] LABS: CALCIUM, SERUM 8.9 mg/dL (8.5-10.1); CREATININE 0.8 mg/dL (0.6-1.3); MAGNESIUM 1.7 mg/dL (1.8-2.4); PHOSPHORUS 3.9 mg/dL (2.5-4.9); POTASSIUM 4.1 mmol/L (3.5-5.1)
[2022-10-01 06:53] LABS: THYROID STIMULATING HORMONE 1.447 uIU/mL (0.358-3.74)
[2022-10-01 07:00] VITALS: BP 150/90
--- NOTE | 2022-10-01 07:24 | NUR ---
ACCOUNTING SUPERVISOR CLOSING NOTE PATIENT IN BED, A/O X 4, ABLE TO MAKE NEEDS KNOWN; STABLE ON ROOM AIR, BREATHING EVENLY AND NO S/S OF DISTRESS NOTED; WITH IV ACCESS AT RAC G#20 SALINE LOCK, INTACT AND PATENT; HOOKED TO TELE MONITORING CURRENTLY READING SINUS RHYTHM 80-90S BPM; ADMINISTERED MEDICATIONS PRESCRIBED; PATIENT'S NEEDS ATTENDED; MONITORED PATIENT ACCORDINGLY; SAFETY MEASURES IMPLEMENTED, BED LOCKED IN LOWEST POSITION, SIDE RAILS UP X 2, CALL LIGHT AND TABLE WITHIN REACH; WILL ENDORSE TO AM NURSE FOR GABINO.
--- NOTE | 2022-10-01 07:58 | NUR ---
SLOTTER OPERATOR OPENING NOTE PATIENT IN BED, A/O X 4, ABLE TO MAKE NEEDS KNOWN; STABLE ON ROOM AIR, BREATHING EVENLY AND NO S/S OF DISTRESS NOTED; WITH IV ACCESS AT RAC G#20 SALINE LOCK, INTACT AND PATENT; HOOKED TO TELE MONITORING CURRENTLY READING SINUS RHYTHM HR 85 BPM; SAFETY MEASURES IMPLEMENTED, BED LOCKED IN LOWEST POSITION, SIDE RAILS UP X 2, CALL LIGHT AND TABLE WITHIN REACH; WILL CONTINUE TO MONITOR.
[2022-10-01] MEDS: PANTOPRAZOLE 40 MG TABLET.DR PO SCH (08:28)
[2022-10-01] MEDS ORDERED: AZITHROMYCIN 250 MG TABLET PO SCH (09:00)
[2022-10-01] MEDS ORDERED: ASPIRIN 81 MG TAB.CHEW PO SCH (09:00)
[2022-10-01] MEDS ORDERED: MAGNESIUM OXIDE 400 MG TABLET PO ONE (11:00)
[2022-10-01 12:00] VITALS: BP 159/103
[2022-10-01] MEDS: AZITHROMYCIN 250 MG TABLET PO SCH (13:00)
[2022-10-01] MEDS ORDERED: AZITHROMYCIN 250 MG TABLET PO ONE (13:30)
[2022-10-01] MEDS ORDERED: AZIT250T PO (15:21)
[2022-10-01] MEDS ORDERED: PIOG45TA5 PO (15:21)
[2022-10-01 16:00] VITALS: BP_SYST 147; BP_SYST 159; BP_DIAS 103; BP_DIAS 80
[2022-10-01] MEDS: LISINOPRIL (10MG) 10 MG TABLET PO SCH (16:30)
[2022-10-01] MEDS ORDERED: Medication Not On Formulary EA (Omega-3 Fatty Acids/Fish Oil (Fish Oil 1,000 Mg Softgel) PO SCH (17:00)
--- NOTE | 2022-10-01 18:37 | NUR ---
RN CLOSING NOTE PATIENT IN BED, A/O X 4, ABLE TO MAKE NEEDS KNOWN; STABLE ON ROOM AIR, BREATHING EVENLY AND NO S/S OF DISTRESS NOTED; WITH IV ACCESS AT RAC G#20 SALINE LOCK, INTACT AND PATENT; HOOKED TO TELE MONITORING CURRENTLY READING SINUS RHYTHM HR 85 BPM; ALL MEDS GIVEN, NO SIGNIFICANT CHANGES NOTED ALL THROUGHOUT THE SHIFT. SAFETY MEASURES IMPLEMENTED, BED LOCKED IN LOWEST POSITION, SIDE RAILS UP X 2, CALL LIGHT AND TABLE WITHIN REACH; WILL ENDORSED TO NEXT NURSE
--- NOTE | 2022-10-01 19:00 | NUR ---
RN OPENING NOTE RECEIVED PT AWAKE IN BED WITH ON BEDSIDE. PT IS A/O X 4, ABLE TO MAKE NEEDS KNOWN. PT IS IN RA TOLERATING WELL, BREATHING EVEN AND UNLABORED @ THIS TIME. PT IV PRESENT ON RIGHT AC #20TG SALINE LOCK, PATENT, INTACT AND FLUSHES WELL W/ NO S &SX OF INFILTRATION @ SITE NOTED. PT MARKETING SECRETARY IS IN PLACE W/ CURRENT READING OF SINUS RHYTHM, HR OF 96 BPM. SAFETY MEASURES IN IS PLACE. BED IN LOWEST AND LOCKED POSITION. SIDE RAILS UP X 2. BEDSIDE TABLE AND CALL LIGHT IS EASY REACH. BED ALARM IS ON. WILL CONTINUE TO MONITOR PT ACCORDINGLY.
[2022-10-01 20:00] VITALS: BP_SYST 0; BP_SYST 156; BP_DIAS 86
[2022-10-02] VITALS: BP 145/99
[2022-10-02 04:00] VITALS: BP 139/81
--- NOTE | 2022-10-02 04:49 | NUR ---
INSTRUCTED PT NOT TO DRINK COFFEE BEFORE THE CT ANGIO OF THE HEART. PT VERBALIZES UNDERSTANDING.
[2022-10-02] MEDS: INSULIN REGULAR, HUMAN 100 UNIT/ML 3 ML VIAL SQ PRN ×3 (06:32→17:26)
[2022-10-02] MEDS: BLOOD SUGAR DIAGNOSTIC 1 EACH STRIP IN SCH ×3 (06:33→16:53)
--- NOTE | 2022-10-02 06:54 | NUR ---
RN CLOSING NOTE PT AWAKE & RESTING COMFORTABLY IN BED. PT IS A/O X 4, RESPONSIVE AND FOLLOWS VERBAL COMMAND. PT IS IN RA W/ NO S & SX OF RESPIRATORY DISTRESS @ THIS TIME. PT IV PRESENT ON RIGHT AC #20TG SALINE LOCK, PATENT, INTACT AND FLUSHES WELL W/ NO S &SX OF INFILTRATION @ SITE NOTED. PT POLICE CAPTAIN SENIOR IS IN PLACE W/ CURRENT READING OF SINUS RHYTHM, HR 86 BPM. ADMINISTERED MEDICATIONS ACCORDINGLY PER MD'S ORDER. SAFETY MEASURES IN IS PLACE. BED IN LOWEST AND LOCKED POSITION. SIDE RAILS UP X 2. BEDSIDE TABLE AND CALL LIGHT IS EASY REACH. BED ALARM IS ON. WILL ENDORSE PT TO THE NEXT SHIFT FOR GABINO.
--- NOTE | 2022-10-02 08:07 | NUR ---
RN OPENING NOTE PT AWAKE & RESTING COMFORTABLY IN BED. PT IS A/O X 4, RESPONSIVE AND FOLLOWS VERBAL COMMAND. PT IS IN RA W/ NO S & SX OF RESPIRATORY DISTRESS @ THIS TIME. PT IV PRESENT ON RIGHT AC #20G SALINE LOCK, PATENT, INTACT AND FLUSHES WELL W/ NO S &SX OF INFILTRATION @ SITE NOTED. PT SUSTAINABILITY SPECIALIST IS IN PLACE W/ CURRENT READING OF SINUS RHYTHM, HR 89 BPM. SAFETY MEASURES IN IS PLACE. BED IN LOWEST AND LOCKED POSITION. SIDE RAILS UP X 2. BEDSIDE TABLE AND CALL LIGHT IS EASY REACH. BED ALARM IS ON. WILL CONTINUE TO MONITOR.
[2022-10-02] MEDS: PANTOPRAZOLE 40 MG TABLET.DR PO SCH (08:34)
[2022-10-02] MEDS ORDERED: PIOGLITAZONE HCL 15 MG TABLET PO SCH (09:00)
[2022-10-02] MEDS ORDERED: GABAPENTIN 300 MG CAPSULE PO SCH (09:00)
[2022-10-02] MEDS ORDERED: glipiZIDE 10 MG TABLET PO SCH (09:00)
[2022-10-02] MEDS ORDERED: ATORVASTATIN 40 MG TABLET PO SCH (09:00)
[2022-10-02] MEDS ORDERED: ASPIRIN 81 MG TAB.CHEW PO SCH (09:00)
[2022-10-02] MEDS ORDERED: AZITHROMYCIN 250 MG TABLET PO SCH (09:00)
[2022-10-02] MEDS: LISINOPRIL (10MG) 10 MG TABLET PO SCH ×2 (09:21→17:18)
[2022-10-02] MEDS: METOPROLOL TARTRATE INJ 5 MG/5 ML AMPUL IVP PRN ×8 (12:27→13:02)
[2022-10-02] MEDS: AZITHROMYCIN 250 MG TABLET PO SCH (12:28)
[2022-10-02] MEDS ORDERED: NITROGLYCERIN 0.4 MG/TAB BOTTLE ONE (12:37)
[2022-10-02] MEDS ORDERED: IOHEXOL-350 100 ML VIAL IV ONE (12:37)
[2022-10-02] MEDS ORDERED: METOPROLOL TARTRATE INJ 5 MG/5 ML AMPUL ONE ×2 (12:38→12:56)
[2022-10-02] MEDS ORDERED: IV NS 0.9% 250 ML IV ONE (12:38)
[2022-10-02] MEDS ORDERED: CT SWABBABLE VALVE TRANS SET 1 EA INFUS.SET MC ONE (12:38)
[2022-10-02] MEDS ORDERED: NITROGLYCERIN 0.4 MG/TAB BOTTLE SL ONE (13:00)
[2022-10-02 16:00] VITALS: BP 137/79
[2022-10-02 17:18] VITALS: BP 137/79
--- NOTE | 2022-10-02 17:54 | NUR ---
DISCHARGED NOTE DISCHARGED PATIENT TO HOME IN STABLE CONDITION. A/OX4, ON RA, TOLERATING WELL AND NOT IN RESPIRATORY AND/OR CARDIAC DISTRESS. . VITALS TAKEN, STABLE AND RECORDED. DENIES ANY PAIN OR DISCOMFORT AT THIS TIME. ALL BELONGINGS ACCOUNTED TO THE PATIENT, ALL DUE MEDS GIVEN, DISCHARGED INSTRUCTION GIVEN TO THE PATIENT, VERBALIZED UNDERSTANDING. IV ACCESS REMOVED ASEPTICALLY, NO SWELLING OR BLEEDING NOTED. PATIENT LEFT THE UNIT ASSISTED BY CHARLETTE HUFF. DISCHARGED.
== END 2022-10-02 18:00 | disposition home or self-care (01) | DRG 198 ==
LOC: ER 10:24 → TELE 16:33
PROVIDERS: ADMIT Nurse Practitioner Acute Care; ATTEND Nurse Practitioner Acute Care
DX: I20.0 Unstable angina (principal); E44.1 Mild protein-calorie malnutrition; J32.9 Chronic sinusitis, unspecified; E11.65 Type 2 diabetes mellitus with hyperglycemia; E78.5 Hyperlipidemia, unspecified; E66.9 Obesity, unspecified; I10 Essential (primary) hypertension; Z68.41 Body mass index [BMI] 40.0-44.9, adult; Z79.82 Long term (current) use of aspirin; Z79.84 Long term (current) use of oral hypoglycemic drugs; Z79.899 Other long term (current) drug therapy
CPT/HCPCS: 36415; 71045-TC; 75574; 80048-TC; 80061-TC; 80076-TC; 82962-TC; 83735-TC; 84100-TC; 84443-TC; 84484-TC; 85025-TC; 87081-TC; 93307-TC; C9803; G0378; J1815; J3490; J7050; Q9967

== ENCOUNTER 2024-05-05 10:57 | Emergency (ER) | payer MEDICAID ==
[~2024-05-05] VITALS: Ht 182.9 cm; Wt 129.3 kg
[~2024-05-05 10:57] MED LIST: ASPI-1169 PO; ATOR40TA PO; AZIT250T PO; GABA300C PO; GLIP10TA11 PO; LISI10TA29 PO; LORA10TA7 PO; METF-442 PO; OMEG-167 PO; PIOG45TA5 PO
[2024-05-05] MEDS ORDERED: DOXY100T2 PO (13:24)
[2024-05-05] MEDS ORDERED: ALBU18HF2 INH (13:24)
[2024-05-05 13:32] VITALS: BP 149/94; TEMP 97.6; O2SAT 97
== END 2024-05-05 13:32 | disposition home or self-care (01) ==
LOC: ER 11:10
DX: R05.3 Chronic cough (principal); R06.02 Shortness of breath; E11.9 Type 2 diabetes mellitus without complications; I10 Essential (primary) hypertension; Z79.82 Long term (current) use of aspirin; Z79.84 Long term (current) use of oral hypoglycemic drugs; Z79.899 Other long term (current) drug therapy; Z86.79 Personal history of other diseases of the circulatory system
CPT/HCPCS: 71045-TC